=== PATIENT | female | born 1995 | race Two or more races ===

== ENCOUNTER 2018-01-24 08:08 | Outpatient (CLI) | payer OTHER ==
[~2018-01-24 08:08] MED LIST: DEXILANT60 MG; PNEU16DI2
== END 2018-01-24 08:22 | disposition home or self-care (01) ==
LOC: RAD 501 08:08
DX: M54.5 Low back pain (principal)

== ENCOUNTER 2018-11-26 14:06 | Emergency (ER) | payer OTHER ==
[~2018-11-26] VITALS: Ht 157.5 cm; Wt 65.8 kg
[2018-11-26] MEDS ORDERED: KARIVA 28 DAY1 EACH (14:26)
== END 2018-11-26 18:12 | disposition home or self-care (01) ==
LOC: ER 14:06
DX: B34.9 Viral infection, unspecified (principal)